=== PATIENT | female | born 1970 | race Caucasian/White ===

== ENCOUNTER → 2018-09-20 | Outpatient (CLI) | payer OTHER ==
[~2018-09-20] MED LIST: GILDESS FE 1-21 EACH PO; IBUPROFEN 600600 M1 PO; LEVOTHYROXIN0.125 M1 PO; NORCO 5-325 TA1 EACH PO; OMEPRAZOLE 20 M20 MG PO; SIMVASTATIN40 MG PO; TOPAMAX 100 MG100 MG PO
== END ==
LOC: CAT 15:39
DX: Z13.6 Encounter for screening for cardiovascular disorders (principal); Z82.49 Family history of ischemic heart disease and other diseases of the circulatory system